=== PATIENT | female | born 1970 ===

== ENCOUNTER 2021-09-25 17:46 | Emergency (ER) | payer OTHER ==
[2021-09-25 22:19] LABS: BASOPHIL 0.2 % (0-2); EOSINOPHIL 0.5 % (0-5); HCT 42.9 % (37.0-47.0); LYMPHOCYTE 26.4 % (15-48); MCHC 32.6 g/dL (32.0-36.0); MCV 91.9 fL (78.0-100.0); MPV 11.8 fL (6.0-9.5); NEUTROPHIL 66.3 % (41-80); NRBC 0; PLT 161 K/uL (150-400); RBC 4.67 M/uL (4.20-5.40); RDW 13.9 % (11.5-14.0); WBC 12.6 K/uL (4.0-10.5)
[2021-09-25 22:31] LABS: ALBUMIN 2.8 g/dL (3.4-5.0); BILIRUBIN - TOTAL 0.4 mg/dL (0.2-1.0); BUN/CREAT RATIO (CALC) 22.5 RATIO; CREATININE 0.8 mg/dL (0.51-0.95); GLOBULIN (CALCULATION) 3.6 g/dL; POTASSIUM 3.7 mmol/L (3.5-5.1); TOTAL PROTEIN 6.4 g/dL (6.4-8.2)
[2021-09-25 22:41] LABS: AMYLASE 27 U/L (25-115); LIPASE 86 U/L (73-393)
[2021-09-25 22:41] LABS: BILIRUBIN NEGATIVE (NEGATIVE); BLOOD 2+ Ery/uL (NEGATIVE); CLARITY CLEAR (CLEAR); COLOR YELLOW (YELLOW); GLUCOSE (U) 3+ mg/dL (NORMAL); LEUKOCYTES NEGATIVE Leu/uL (NEGATIVE); NITRITE POSITIVE (NEGATIVE); PROTEIN NEGATIVE (NEGATIVE); SPECIFIC GRAVITY >=1.030 (1.001-1.030); UROBILINOGEN 0.2 mg/dL (0.2-1.0); pH 5.5 (5.0-9.0)
[2021-09-25 22:50] LABS: BACTERIA 2+; SQUAMOUS EPITHELIAL CELLS >50; URINARY WBC 20-50
[2021-09-25] MEDS ORDERED: BACTRIM DS TAB1 EACH PO (22:53)
[2021-09-25] MEDS ORDERED: ZOFRAN4 M1 PO (22:53)
[2021-09-25 23:02] LABS: CORONAVIRUS 2019 SARS-COV-2 NEGATIVE (NEGATIVE); INFLUENZA A NAA NEGATIVE (NEGATIVE)
== END 2021-09-26 01:48 | disposition home or self-care (01) ==
LOC: FER 17:46
PROVIDERS: Nurse Practitioner Family
DX: N39.0 Urinary tract infection, site not specified (principal); K57.30 Diverticulosis of large intestine without perforation or abscess without bleeding; K44.9 Diaphragmatic hernia without obstruction or gangrene; E11.9 Type 2 diabetes mellitus without complications; I10 Essential (primary) hypertension; F17.210 Nicotine dependence, cigarettes, uncomplicated; Z20.822 Contact with and (suspected) exposure to COVID-19; Z88.8 Allergy status to other drugs, medicaments and biological substances
CPT/HCPCS: 36415; 80053; 81001; 82150; 83605; 83690; 85025; 87076; 87088; 87186; J7030; Q9967; U0002